=== PATIENT | female | born 1940 | race Caucasian/White ===

== ENCOUNTER → 2017-09-07 | Outpatient (REF) | payer MEDICARE ==
[~2017-09-07] MED LIST: CHOL200025 PO; RANI-324 PO; VALS1TAB63 PO; VALS320T12 PO
== END ==
LOC: ZZSTITCHES 09:51
PROVIDERS: ATTEND Physician Assistant
DX: N39.0 Urinary tract infection, site not specified (principal); B95.2 Enterococcus as the cause of diseases classified elsewhere
CPT/HCPCS: 87077; 87088; 87186

== ENCOUNTER 2018-05-15 19:51 | Emergency (ER) | payer MEDICARE, MEDICAID ==
[~2018-05-15 19:51] MED LIST changes: -LISI-353 PO
[2018-05-15] MEDS ORDERED: LISI-353 PO (20:10)
[2018-05-15] MEDS ORDERED: RANI-366 PO (20:10)
--- NOTE | 2018-05-15 20:10 | ER Report ---
History and Physical Time Seen By MD: 20:10 Hx. of Stated Complaint: blood pressure is hi with a headache HPI/ROS CHIEF COMPLAINT: elevated blood pressure HISTORY OF PRESENT ILLNESS: This is a 78 year old female. She has had some shortness of breath and dizziness today associated with elevated blood pressure. No chest pain. Says she has been off her blood pressure medicine for some time, but saw urgent care recently and they started her on Lisinopril/HCTZ 20/12.5. She took this medicine this morning. Because of not feeling well, she took her blood pressure tonight and it was very high. She said that the upper number was above 200 and the bottom number was about 90. She took a second dose of her Lisinopril/HCTZ. Has headache today as well. Dizziness and shortness of breath do seem to have been worse with change in posture and exertion. REVIEW OF SYSTEMS: Constitutional: No fever or chills. Eyes: No vision changes. ENT: No sore throat. No congestion. Cardiovascular: As above. Respiratory: No cough. No shortness of breath. Gastrointestinal: No abdominal pain. No nausea or vomiting. Has had some constipation the last few days. Genitourinary: No dysuria. Has had some frequency Musculoskeletal: No extremity or musculoskeletal pain. Skin: No rashes. No bruising. Neurological: No numbness. No weakness. Allergies: Coded Allergies: Sulfa (Sulfonamide Antibiotics) (Verified Allergy, Mild, UNKNOWN, 05/15/18) codeine (Unverified Allergy, Unknown, 05/15/18) losartan (Verified Allergy, Unknown, 05/15/18) sulfamethoxazole (Unverified Allergy, Unknown, 05/15/18) trimethoprim (Unverified Allergy, Unknown, 05/15/18) Home Meds Reported Medications Lisinopril/Hydrochlorothiazide (LISINOPRIL-HCTZ 20-12.5 MG TAB) 1 Each Tablet, 1 EACH PO DAILY 05/15/18 Ranitidine Hcl (ZANTAC) 150 Mg Tablet, 300 MG PO HS, TAB 05/15/18 Discontinued Reported Medications Ranitidine Hcl (ZANTAC) 150 Mg Tablet, 150 MG PO UNKNOWN FREQUENCY, TAB 07/09/17 Valsartan/Hydrochlorothiazide (DIOVAN HCT 80-12.5 MG TABLET) 1 Each Tablet, 1 EACH PO QDAY 07/09/17 Past Medical/Surgical History Hypertension, hiatal hernia and GERD, cholecystectomy Reviewed Nurses Notes: Yes Smoking Status: Never Smoker Hx Substance Use Disorder: No Constitutional Vital Sign - Last 24 Hours 05/15/18 05/15/18 05/15/18 05/15/18 19:51 19:57 20:00 20:00 Temp 98.0 Pulse 45 46 Resp 11 15 B/P (MAP) 199/84 (122) 199/81 190/77 (114) Pulse Ox 96 94 O2 Delivery Room Air Room Air 05/15/18 05/15/18 05/15/18 05/15/18 20:21 20:30 20:35 21:00 Pulse 44 43 Resp 12 15 B/P (MAP) 149/72 (97) 178/66 (103) Pulse Ox 95 93 O2 Delivery Room Air Room Air 05/15/18 05/15/18 05/15/18 05/15/18 21:05 21:30 21:40 21:45 Pulse 44 45 46 Resp 20 17 19 B/P (MAP) 206/85 (125) Pulse Ox 95 95 95 O2 Delivery Room Air Room Air 05/15/18 05/15/18 05/15/18 05/15/18 21:50 21:55 22:00 22:05 Pulse 45 45 46 44 Resp 10 18 14 15 B/P (MAP) 175/87 (116) Pulse Ox 95 95 95 95 05/15/18 05/15/18 05/15/18 05/15/18 22:10 22:15 22:20 22:25 Pulse 43 44 44 43 Resp 25 13 22 11 Pulse Ox 96 96 95 92 05/15/18 05/15/18 05/15/18 22:30 22:35 22:40 Pulse 44 45 ??? Resp 16 16 18 B/P (MAP) 181/80 (113) Pulse Ox 94 95 Physical Exam General Appearance: The patient is alert. No acute distress. Non-toxic in appearance. Eyes: Pupils are equal, round. Reactive to light. No pallor, injection or icterus. Extraocular movements are intact. ENT: Mucous membranes are moist. Normal oral mucosa. Posterior oropharynx is normal. Neck: Supple and non tender. No lymphadenopathy. Respiratory: Lungs are clear to auscultation. Cardiovascular: Bradycardia, regular. No murmurs, gallops or rubs. Normal capillary refill. No edema. Gastrointestinal: Abdomen is soft and non tender. Nondistended. Normal active bowel sounds. Neurological: Alert and oriented x3. No focal neurologic deficits Skin: Warm and dry. No rashes. Musculoskeletal: Extremities are nontender. No tenderness in palpation of the b ack/spine. DIFFERENTIAL DIAGNOSIS: After history and physical exam, differential diagnosis was considered for a patient with elevated blood pressure with history of hypertension but also with bradycardia and abnormal EKG. Question if this is second or third degree heart block, looks like a complete heart block at this time. [place] panel, blood count, troponin. Also get a urine test from her for h er question of urinary frequency all this may be due to the hydrochlorothiazide. No history of arrhythmias in the past. We'll watch the blood pressure and intervene as needed Medical Decision Making Data Points Result Diagram: 05/15/18200405/15/182004 Laboratory Hematology Test 05/15/18 20:05 05/15/18 21:25 Red Blood Count 5.20 M/uL (4.17-5.56) Mean Corpuscular Volume 87.9 fL (80.0-96.0) Mean Corpuscular Hemoglobin 30.6 pg (26.0-33.0) Mean Corpuscular Hemoglobin Concent 34.8 g/dL (32.0-36.0) Red Cell Distribution Width 13.5 % (11.5-14.5) Mean Platelet Volume 9.1 fL (7.2-11.1) Neutrophils (%) (Auto) 57.9 % (39.4-72.5) Lymphocytes (%) (Auto) 31.8 % (17.6-49.6) Monocytes (%) (Auto) 7.9 % (4.1-12.4) Eosinophils (%) (Auto) 1.7 % (0.4-6.7) Basophils (%) (Auto) 0.7 % (0.3-1.4) Nucleated RBC Relative Count (auto) 0.0 /100WBC Neutrophils # (Auto) 4.0 K/uL (2.0-7.4) Lymphocytes # (Auto) 2.2 K/uL (1.3-3.6) Monocytes # (Auto) 0.5 K/uL (0.3-1.0) Eosinophils # (Auto) 0.1 K/uL (0.0-0.5) Basophils # (Auto) 0.0 K/uL (0.0-0.1) Nucleated RBC Absolute Count (auto) 0.00 K/uL Prothrombin Time 12.6 seconds (12.0-14.4) Prothromb Time International Ratio 0.95 Activated Partial Thromboplast Time 28 seconds (23-35) Sodium Level 135 mmol/L (137-145) Potassium Level 3.6 mmol/L (3.5-5.0) Chloride Level 98 mmol/L (98-107) Carbon Dioxide Level 25 mmol/L (22-31) Blood Urea Nitrogen 22 mg/dl (7-18) Creatinine 0.90 mg/dl (0.52-1.04) Glomerular Filtration Rate Calc > 60.0 Random Glucose 133 mg/dl (75-110) Calcium Level 9.5 mg/dl (8.4-10.2) Magnesium Level 2.1 mg/dl (1.7-2.2) Total Bilirubin 0.5 mg/dl (0.2-1.3) Aspartate Amino Transf (AST/SGOT) 33 U/L (0-35) Alanine Aminotransferase (ALT/SGPT) 35 U/L (0-56) Alkaline Phosphatase 65 U/L (0-126) Troponin I < 0.012 ng/ml Total Protein 7.4 g/dl (6.3-8.2) Albumin 4.0 g/dl (3.5-5.0) Urine Color Yellow Urine Clarity Slightly-cloudy Urine pH 5.0 pH (4.8-9.5) Urine Specific [place] 1.012 Urine Protein Negative mg/dL (NEGATIVE) Urine Glucose (UA) Negative mg/dL (NEGATIVE) Urine Ketones Negative mg/dL (NEGATIVE) Urine Blood Negative (NEGATIVE) Urine Nitrite Negative (NEGATIVE) Urine Bilirubin Negative (NEGATIVE) Urine Urobilinogen Negative mg/dL (0.2-1.9) Urine Leukocyte Esterase Large (NEGATIVE) Urine RBC 3 /HPF (0-2/HPF) Urine WBC 66 /HPF (0-5/HPF) Urine Squamous Epithelial Cells Many /LPF (</=FEW) Urine Transitional Epithelial Cells Many /LPF (NONE-FEW) Urine Bacteria Negative /HPF (NONE-FEW) Urine Mucus None /HPF (NONE-FEW) Chemistry Test 05/15/18 20:05 05/15/18 21:25 White Blood Count 6.9 k/uL (4.5-11.0) Red Blood Count 5.20 M/uL (4.17-5.56) Hemoglobin 15.9 g/dL (12.0-16.0) Hematocrit 45.7 % (34.0-47.0) Mean Corpuscular Volume 87.9 fL (80.0-96.0) Mean Corpuscular Hemoglobin 30.6 pg (26.0-33.0) Mean Corpuscular Hemoglobin Concent 34.8 g/dL (32.0-36.0) Red Cell Distribution Width 13.5 % (11.5-14.5) Platelet Count 254 K/uL (150-450) Mean Platelet Volume 9.1 fL (7.2-11.1) Neutrophils (%) (Auto) 57.9 % (39.4-72.5) Lymphocytes (%) (Auto) 31.8 % (17.6-49.6) Monocytes (%) (Auto) 7.9 % (4.1-12.4) Eosinophils (%) (Auto) 1.7 % (0.4-6.7) Basophils (%) (Auto) 0.7 % (0.3-1.4) Nucleated RBC Relative Count (auto) 0.0 /100WBC Neutrophils # (Auto) 4.0 K/uL (2.0-7.4) Lymphocytes # (Auto) 2.2 K/uL (1.3-3.6) Monocytes # (Auto) 0.5 K/uL (0.3-1.0) Eosinophils # (Auto) 0.1 K/uL (0.0-0.5) Basophils # (Auto) 0.0 K/uL (0.0-0.1) Nucleated RBC Absolute Count (auto) 0.00 K/uL Prothrombin Time 12.6 seconds (12.0-14.4) Prothromb Time International Ratio 0.95 Activated Partial Thromboplast Time 28 seconds (23-35) Glomerular Filtration Rate Calc > 60.0 Calcium Level 9.5 mg/dl (8.4-10.2) Magnesium Level 2.1 mg/dl (1.7-2.2) Total Bilirubin 0.5 mg/dl (0.2-1.3) Aspartate Amino Transf (AST/SGOT) 33 U/L (0-35) Alanine Aminotransferase (ALT/SGPT) 35 U/L (0-56) Alkaline Phosphatase 65 U/L (0-126) Troponin I < 0.012 ng/ml Total Protein 7.4 g/dl (6.3-8.2) Albumin 4.0 g/dl (3.5-5.0) Urine Color Yellow Urine Clarity Slightly-cloudy Urine pH 5.0 pH (4.8-9.5) Urine Specific [place] 1.012 Urine Protein Negative mg/dL (NEGATIVE) Urine Glucose (UA) Negative mg/dL (NEGATIVE) Urine Ketones Negative mg/dL (NEGATIVE) Urine Blood Negative (NEGATIVE) Urine Nitrite Negative (NEGATIVE) Urine Bilirubin Negative (NEGATIVE) Urine Urobilinogen Negative mg/dL (0.2-1.9) Urine Leukocyte Esterase Large (NEGATIVE) Urine RBC 3 /HPF (0-2/HPF) Urine WBC 66 /HPF (0-5/HPF) Urine Squamous Epithelial Cells Many /LPF (</=FEW) Urine Transitional Epithelial Cells Many /LPF (NONE-FEW) Urine Bacteria Negative /HPF (NONE-FEW) Urine Mucus None /HPF (NONE-FEW) Coagulation Test 05/15/18 20:05 Prothrombin Time 12.6 seconds Prothromb Time International Ratio 0.95 Activated Partial Thromboplast Time 28 seconds Urinalysis Test 05/15/18 21:25 Urine Color Yellow Urine Clarity Slightly-cloudy Urine pH 5.0 pH (4.8-9.5) Urine Specific [place] 1.012 Urine Protein Negative mg/dL (NEGATIVE) Urine Glucose (UA) Negative mg/dL (NEGATIVE) Urine Ketones Negative mg/dL (NEGATIVE) Urine Blood Negative (NEGATIVE) Urine Nitrite Negative (NEGATIVE) Urine Bilirubin Negative (NEGATIVE) Urine Urobilinogen Negative mg/dL (0.2-1.9) Urine Leukocyte Esterase Large (NEGATIVE) Urine RBC 3 /HPF (0-2/HPF) Urine WBC 66 /HPF (0-5/HPF) Urine Squamous Epithelial Cells Many /LPF (</=FEW) Urine Transitional Epithelial Cells Many /LPF (NONE-FEW) Urine Bacteria Negative /HPF (NONE-FEW) Urine Mucus None /HPF (NONE-FEW) EKG/Imaging EKG Interpretation 12 lead EKG: Rhythm: Complete heart block with a widened QRS, rate 43 [place]: Left deviation QRS: Widened QRS, poor R-wave progression in the V leads ST segments: normal, no evidence of ST elevation or depression Imaging Examination: CHEST SINGLE AP Comparison: CT chest 07/31/2014 History: elevated blood pressure Findings: Cardiac and hilar contour size is within normal limits. No consolidation, nodule, or peribronchial inflammation. No pneumothorax, edema, or effusion. Subcarinal/posterior mediastinal mass effect; given differences in modality this is little changed since the CT and is related to the hiatal h ernia. Osseous structures are intact. IMPRESSION: 1. No findings of acute cardiopulmonary disease. 2. Hiatal hernia. Report Dictated By: Hi Pierson MD at 05/15/2018 9:37 PM EXAMINATION: CT HEAD WITHOUT CONTRAST COMPARISON: None available HISTORY: elevated blood pressure, headache PROCEDURE: Noncontrast CT from the vertex through the skull base. One of the following dose optimization techniques was utilized in the performance of this exam: Automated exposure control; adjustment of the mA and/or kV according to the patient's size; or use of an iterative reconstruction technique. Specific details can be referenced in the facility's radiology CT exam operational policy. FINDINGS: Brain volume: Age-appropriate. Hemorrhage/extra-axial fluid: None. Mass effect/midline shift/edema: None. Ischemia: Moderate chronic-appearing white matter change with no focal mcqueen- white differentiation loss. Ventricles and basal cisterns: Within normal limits. Posterior fossa: Negative. Vessels: Carotid atherosclerosis. Calvarium, skull base, and scalp: Negative. Visualized sinuses and orbits: Within normal limits. IMPRESSION: 1. No intracranial hemorrhage or mass effect. 2. Chronic appearing white matter change with no CT findings of acute ischemia. Report Dictated By: Hi Pierson MD at 05/15/2018 9:32 PM ED Course/Re-evaluation Clinical Indication for ER IV: IV Access ED Course After the initial evaluation, the blood pressures did start coming down. Headache is gone. Still mildly short of breath at times, but not really dizzy now. Heart rate remains bradycardia. Initially could've EKG was questionable for a second-degree heart block versus a complete heart block, on further evaluation, measuring out the P to P and QRS to QRS intervals, this appears consistent with complete heart block. Discussed this with the patient indicating the need to get her where she can be treated by cardiology and discussed the possible need for pacemaker. We also moved her to a different room and put pacer pads in place in case transcutaneous pacing would be needed. I called and spoke with cardiology, Dr. Herman. After my conversation with Dr. Herman, we are electing to fly the patient to [facility]. I talked to Dr. Phelan, the hospitalist and she is going to be accepting the patient for admission there in the ICU. I have given the patient 40 mEq of potassium chloride orally. Decision to Disposition Date: May 15, 2018 Decision to Disposition Time: 22:05 Transfer Facility Patient was transferred to [facility] via helicopter. The transfer was emergent, and was required because the capabilities of the receiving hospital. Consent for transfer was obtained from the patient. Air transport was chosen because of the need for possible IV drip medications and time sensitive nature of this patient's problem. See EMTALA for transfer orders. Depart Departure Latest Vital Signs Vital Signs Date Time Temp Pulse Resp B/P (MAP) Pulse Ox O2 Delivery O2 Flow Rate FiO2 05/15/18 22:40 ??? 18 05/15/18 22:35 95 05/15/18 22:30 181/80 (113) 05/15/18 21:40 Room Air 05/15/18 20:00 98.0 Impression: Primary Impression: Complete heart block Additional Impression: Severe hypertension Condition: Condition Unchanged Disposition: XFER TO ACUTE [facility]ARE [facility]OS[facility] Referrals: JEIMY AMN MD (PCP) Problem Qualifiers CARMELA URBINA MD May 15, 2018 20:10
--- NOTE | 2018-05-15 20:41 | EKG ---
FACILITY: [facility] [place] PATIENT NAME: FERN LAU : [id number] MR: [id number] V: [id number] EXAM DATE: ORDERING PHYSICIAN: CARMELA URBINA TECHNOLOGIST: ALEJANDRINA Crowell Reason : CARDIAC Blood Pressure : / mmHG Vent. Rate : 044 BPM Atrial Rate : 082 BPM P-R Int : 000 ms QRS Dur : 118 ms QT Int : 490 ms P-R-T Axes : 049 -31 095 degrees QTc Int : 418 ms Complete heart block with junctional escape rhythm Left axis deviation R wave progression consistent with an old ant/sep AL vs lead placement When compared with ECG of 31-JUL-2014 12:33, Now in complete heart block Confirmed by LENNY ALDRICH ([id number]) on 05/15/2018 9:05:16 PM Referred By: Confirmed By:LENNY ALDRICH
[2018-05-15 21:02] LABS: PLATELET COUNT, AUTOMATED 254 K/uL (150-450)
--- NOTE | 2018-05-15 21:41 | RADIOLOGY IMAGING REPORT ---
FACILITY: [facility] [place] PATIENT NAME: Fe Lorenzana : 1940 MR: [id number] V: [id number] EXAM DATE: ORDERING PHYSICIAN: CARMELA URBINA TECHNOLOGIST: Location: [facility] Patient: Fe Lorenzana : 1940 Visit/Account:[id number] Date of Sevice: 05/15/2018 EXAMINATION: CT HEAD WITHOUT CONTRAST COMPARISON: None available HISTORY: elevated blood pressure, headache PROCEDURE: Noncontrast CT from the vertex through the skull base. One of the following dose optimizat ion techniques was utilized in the performance of this exam: Automated exposure control; adjustment o f the mA and/or kV according to the patient's size; or use of an iterative reconstruction technique. Specific details can be referenced in the facility's radiology CT exam operational policy. FINDINGS: Brain volume: Age-appropriate. Hemorrhage/extra-axial fluid: None. Mass effect/midline shift/edema: None. Ischemia: Moderate chronic-appearing white matter change with no focal mcqueen-white differentiation los s. Ventricles and basal cisterns: Within normal limits. Posterior fossa: Negative. Vessels: Carotid atherosclerosis. Calvarium, skull base, and scalp: Negative. Visualized sinuses and orbits: Within normal limits. IMPRESSION: 1. No intracranial hemorrhage or mass effect. 2. Chronic appearing white matter change with no CT findings of acute ischemia. Report Dictated By: Hi Pierson MD at 05/15/2018 9:32 PM Report E-Signed By: Hi Pierson MD at 05/15/2018 9:37 PM WSN:[email or web address]
--- NOTE | 2018-05-15 21:47 | RADIOLOGY IMAGING REPORT ---
FACILITY: [facility] [place] PATIENT NAME: Fe Lorenzana : 1940 MR: [id number] V: [id number] EXAM DATE: ORDERING PHYSICIAN: CARMELA URBINA TECHNOLOGIST: Location: [facility] [place] Patient: Fe Lorenzana : 1940 Visit/Account:[id number] Date of Sevice: 05/15/2018 Examination: CHEST SINGLE AP Comparison: CT chest 07/31/2014 History: elevated blood pressure Findings: Cardiac and hilar contour size is within normal limits. No consolidation, nodule, or perib ronchial inflammation. No pneumothorax, edema, or effusion. Subcarinal/posterior mediastinal mass effect; given differences in modality this is little changed since the CT and is related to the hiat al hernia. Osseous structures are intact. IMPRESSION: 1. No findings of acute cardiopulmonary disease. 2. Hiatal hernia. Report Dictated By: Hi Pierson MD at 05/15/2018 9:37 PM Report E-Signed By: Hi Pierson MD at 05/15/2018 9:43 PM WSN:[email or web address]
[2018-05-15] MEDS ORDERED: POTASSIUM CHL 20 MEQ TABCR PO SCH (21:50)
[2018-05-15] MEDS ORDERED: DOPamine/DEXTRO(*) 1600 MCG/ML 250 ML ONE (21:54)
[2018-05-15 22:30] VITALS: BP 181/80
[2018-05-15 23:23] LABS: INR 0.95
== END 2018-05-15 22:58 | disposition short-term general hospital (02) ==
LOC: ER 20:24
DX: I44.2 Atrioventricular block, complete (principal); I10 Essential (primary) hypertension
CPT/HCPCS: 81001; 83735; 84484; 85025; 85610; 85730; 87088; 93005; 99285; A9270; J1265; 70450; 71045; 82040; 82247; 82310; 82374; 82435; 82565; 82947; 84075; 84132; 84155; 84295; 84450; 84460; 84520

== ENCOUNTER → 2018-05-15 | Outpatient (REF) ==
[~2018-05-15] MED LIST changes: +LISI-353 PO; -RANI-324 PO; +RANI-366 PO
== END ==
LOC: AMB 22:22
PROVIDERS: ATTEND Nurse Practitioner
DX: Z76.89 Persons encountering health services in other specified circumstances (principal)

== ENCOUNTER → 2018-10-01 | Outpatient (CLI) | payer MEDICARE, MEDICAID ==
[~2018-10-01] MED LIST changes: +CIPR-345 PO; +LISI-353 PO; +PANT40TA65 PO
[2018-10-01 15:20] LABS: LDL CHOLESTEROL 94 mg/dl
[2018-10-01 15:23] LABS: PLATELET COUNT, AUTOMATED 316 K/uL (150-450)
== END ==
LOC: LAB 14:52
PROVIDERS: ATTEND Internal Medicine
DX: I44.2 Atrioventricular block, complete (principal); I10 Essential (primary) hypertension
CPT/HCPCS: 36415; 81001; 82040; 82247; 82310; 82374; 82435; 82465; 82565; 82947; 83718; 84075; 84132; 84155; 84295; 84443; 84450; 84460; 84478; 84520; 85025; 87077; 87088; 87186

== ENCOUNTER 2018-10-07 19:42 | Emergency (ER) | payer MEDICARE, MEDICAID ==
--- NOTE | 2018-10-07 20:57 | ER Report ---
History and Physical Time Seen By MD: 20:57 HPI/ROS CHIEF COMPLAINT: Elevated blood pressure and a headache HISTORY OF PRESENT ILLNESS: This is a 70-year-old female. She came to [facility] because her blood pressure is elevated and she has a mild headache. Denies any other symptoms. She denies any chest pain, shortness of breath, dizziness, v ision changes or other problems. She has been on some blood pressure medicine in the past but was taken off because of problems with this and blood pressure being too low. Her primary care provider is currently monitoring her blood pressure. No trouble with bowel or bladder function. She is eating and drinking normally. No recent illnesses and no [id number] medications. She does have a history of complete heart block during her last hospitalization in which I took care of her, and [place] [facility] [place]. Allergies: Coded Allergies: Sulfa (Sulfonamide Antibiotics) (Verified Allergy, Mild, UNKNOWN, 05/15/18) codeine (Unverified Allergy, Unknown, 05/15/18) losartan (Verified Allergy, Unknown, 05/15/18) sulfamethoxazole (Unverified Allergy, Unknown, 05/15/18) trimethoprim (Unverified Allergy, Unknown, 05/15/18) Home Meds Active Scripts Ciprofloxacin 250 Mg (CIPROFLOXACIN 250 MG) 250 Mg Tablet, 250 MG PO BID, #10 TAB Prov:MARTIN DUNN MD 10/03/18 Pantoprazole Sodium (PANTOPRAZOLE SODIUM) 40 Mg Tablet.dr, 40 MG PO QDAY, #30 TAB.SR 6 Refills Prov:MARTIN DUNN MD 10/01/18 Discontinued Reported Medications Lisinopril/Hydrochlorothiazide (LISINOPRIL-HCTZ 20-12.5 MG TAB) 1 Each Tablet, 1 EACH PO DAILY 05/15/18 Ranitidine Hcl (ZANTAC) 150 Mg Tablet, 300 MG PO HS, TAB 05/15/18 Reviewed Nurses Notes: Yes Smoking Status: Never Smoker Hx Substance Use Disorder: No Constitutional Vital Sign - Last 24 Hours 10/07/18 10/07/18 10/07/18 10/07/18 20:57 21:00 21:00 21:15 Pulse 90 90 96 Resp 27 22 14 B/P (MAP) 181/98 (125) 156/106 (123) 156/106 Pulse Ox 93 93 92 O2 Delivery Room Air 10/07/18 10/07/18 10/07/18 10/07/18 21:30 21:45 22:00 22:15 Pulse 89 92 90 Resp 17 23 27 19 B/P (MAP) 145/96 (112) 167/103 (124) Pulse Ox 93 92 92 93 10/07/18 10/07/18 10/07/18 10/07/18 22:30 22:45 23:00 23:32 Pulse 89 89 91 Resp 14 31 28 B/P (MAP) 145/92 (109) 165/100 (121) 166/101 (122) Pulse Ox 90 91 90 10/07/18 10/08/18 10/08/18 10/08/18 23:45 00:00 00:15 00:30 Pulse 94 87 87 Resp 11 14 14 22 B/P (MAP) 149/94 (112) 143/100 (114) Pulse Ox 92 91 91 91 10/08/18 00:45 Pulse 89 Resp 14 Pulse Ox 92 Physical Exam General Appearance: The patient is alert. No acute distress. Non-toxic in appearance. Eyes: Pupils are equal, round. Reactive to light. No pallor, injection or icterus. Extraocular movements are intact. ENT: Mucous membranes are moist. Normal oral mucosa. Posterior oropharynx is normal. Normal tympanic membranes and canals. Neck: Supple and non tender. Respiratory: Lungs are clear to auscultation. There are no retractions or accessory muscle use. Cardiovascular: Regular rate and rhythm. No murmurs, gallops or rubs. Normal capillary refill. No edema. No carotid bruits. Gastrointestinal: Abdomen is soft and non tender. Nondistended. Normal active bowel sounds. No costovertebral angle tenderness with percussion. Neurological: Alert and oriented x3. Cranial nerves II through XII show no acute deficits on my exam. No focal neurologic deficits in the extremities. Skin: Warm and dry. No rashes. Musculoskeletal: Extremities are nontender. No tenderness in palpation of the cervical, thoracic and lumbar spine. DIFFERENTIAL DIAGNOSIS: After history and physical exam, differential diagnosis was considered for patient with elevated blood pressure and has a headache, no other symptoms at this time. We'll need to look for end organ perfusion problems associated with elevated blood pressure but does not appear to be the case now. And then we'll need to address whether she needs to be on a blood pressure medicine at this time. Medical Decision Making Data Points Result Diagram: 10/07/18220110/07/182201 Laboratory Hematology Test 10/07/18 21:55 10/07/18 22:02 Urine Color Straw Urine Clarity Clear Urine pH 7.0 pH (4.8-9.5) Urine Specific [place] 1.008 Urine Protein Negative mg/dL (NEGATIVE) Urine Glucose (UA) Negative mg/dL (NEGATIVE) Urine Ketones Negative mg/dL (NEGATIVE) Urine Blood Negative (NEGATIVE) Urine Nitrite Negative (NEGATIVE) Urine Bilirubin Negative (NEGATIVE) Urine Urobilinogen Negative mg/dL (0.2-1.9) Urine Leukocyte Esterase Negative (NEGATIVE) Urine RBC 1 /HPF (0-2/HPF) Urine WBC 6 /HPF (0-5/HPF) Urine Squamous Epithelial Cells Many /LPF (</=FEW) Urine Transitional Epithelial Cells Moderate /LPF (NONE-FEW) Urine Bacteria Negative /HPF (NONE-FEW) Urine Mucus None /HPF (NONE-FEW) Red Blood Count 4.96 M/uL (4.17-5.56) Mean Corpuscular Volume 88.6 fL (80.0-96.0) Mean Corpuscular Hemoglobin 30.7 pg (26.0-33.0) Mean Corpuscular Hemoglobin Concent 34.6 g/dL (32.0-36.0) Red Cell Distribution Width 14.4 % (11.5-14.5) Mean Platelet Volume 7.7 fL (7.2-11.1) Neutrophils (%) (Auto) 47.4 % (39.4-72.5) Lymphocytes (%) (Auto) 38.8 % (17.6-49.6) Monocytes (%) (Auto) 8.6 % (4.1-12.4) Eosinophils (%) (Auto) 4.2 % (0.4-6.7) Basophils (%) (Auto) 1.0 % (0.3-1.4) Nucleated RBC Relative Count (auto) 0.1 /100WBC Neutrophils # (Auto) 3.1 K/uL (2.0-7.4) Lymphocytes # (Auto) 2.5 K/uL (1.3-3.6) Monocytes # (Auto) 0.6 K/uL (0.3-1.0) Eosinophils # (Auto) 0.3 K/uL (0.0-0.5) Basophils # (Auto) 0.1 K/uL (0.0-0.1) Nucleated RBC Absolute Count (auto) 0.01 K/uL Sodium Level 139 mmol/L (137-145) Potassium Level 3.4 mmol/L (3.5-5.0) Chloride Level 102 mmol/L (98-107) Carbon Dioxide Level 26 mmol/L (22-31) Blood Urea Nitrogen 15 mg/dl (7-18) Creatinine 0.80 mg/dl (0.52-1.04) Glomerular Filtration Rate Calc > 60.0 Random Glucose 109 mg/dl (75-110) Calcium Level 9.8 mg/dl (8.4-10.2) Total Bilirubin 0.9 mg/dl (0.2-1.3) Aspartate Amino Transf (AST/SGOT) 34 U/L (0-35) Alanine Aminotransferase (ALT/SGPT) 38 U/L (0-56) Alkaline Phosphatase 85 U/L (0-126) Troponin I < 0.012 ng/ml Total Protein 8.2 g/dl (6.3-8.2) Albumin 4.6 g/dl (3.5-5.0) Chemistry Test 10/07/18 21:55 10/07/18 22:02 Urine Color Straw Urine Clarity Clear Urine pH 7.0 pH (4.8-9.5) Urine Specific [place] 1.008 Urine Protein Negative mg/dL (NEGATIVE) Urine Glucose (UA) Negative mg/dL (NEGATIVE) Urine Ketones Negative mg/dL (NEGATIVE) Urine Blood Negative (NEGATIVE) Urine Nitrite Negative (NEGATIVE) Urine Bilirubin Negative (NEGATIVE) Urine Urobilinogen Negative mg/dL (0.2-1.9) Urine Leukocyte Esterase Negative (NEGATIVE) Urine RBC 1 /HPF (0-2/HPF) Urine WBC 6 /HPF (0-5/HPF) Urine Squamous Epithelial Cells Many /LPF (</=FEW) Urine Transitional Epithelial Cells Moderate /LPF (NONE-FEW) Urine Bacteria Negative /HPF (NONE-FEW) Urine Mucus None /HPF (NONE-FEW) White Blood Count 6.5 k/uL (4.5-11.0) Red Blood Count 4.96 M/uL (4.17-5.56) Hemoglobin 15.2 g/dL (12.0-16.0) Hematocrit 43.9 % (34.0-47.0) Mean Corpuscular Volume 88.6 fL (80.0-96.0) Mean Corpuscular Hemoglobin 30.7 pg (26.0-33.0) Mean Corpuscular Hemoglobin Concent 34.6 g/dL (32.0-36.0) Red Cell Distribution Width 14.4 % (11.5-14.5) Platelet Count 324 K/uL (150-450) Mean Platelet Volume 7.7 fL (7.2-11.1) Neutrophils (%) (Auto) 47.4 % (39.4-72.5) Lymphocytes (%) (Auto) 38.8 % (17.6-49.6) Monocytes (%) (Auto) 8.6 % (4.1-12.4) Eosinophils (%) (Auto) 4.2 % (0.4-6.7) Basophils (%) (Auto) 1.0 % (0.3-1.4) Nucleated RBC Relative Count (auto) 0.1 /100WBC Neutrophils # (Auto) 3.1 K/uL (2.0-7.4) Lymphocytes # (Auto) 2.5 K/uL (1.3-3.6) Monocytes # (Auto) 0.6 K/uL (0.3-1.0) Eosinophils # (Auto) 0.3 K/uL (0.0-0.5) Basophils # (Auto) 0.1 K/uL (0.0-0.1) Nucleated RBC Absolute Count (auto) 0.01 K/uL Glomerular Filtration Rate Calc > 60.0 Calcium Level 9.8 mg/dl (8.4-10.2) Total Bilirubin 0.9 mg/dl (0.2-1.3) Aspartate Amino Transf (AST/SGOT) 34 U/L (0-35) Alanine Aminotransferase (ALT/SGPT) 38 U/L (0-56) Alkaline Phosphatase 85 U/L (0-126) Troponin I < 0.012 ng/ml Total Protein 8.2 g/dl (6.3-8.2) Albumin 4.6 g/dl (3.5-5.0) Urinalysis Test 10/07/18 21:55 Urine Color Straw Urine Clarity Clear Urine pH 7.0 pH (4.8-9.5) Urine Specific [place] 1.008 Urine Protein Negative mg/dL (NEGATIVE) Urine Glucose (UA) Negative mg/dL (NEGATIVE) Urine Ketones Negative mg/dL (NEGATIVE) Urine Blood Negative (NEGATIVE) Urine Nitrite Negative (NEGATIVE) Urine Bilirubin Negative (NEGATIVE) Urine Urobilinogen Negative mg/dL (0.2-1.9) Urine Leukocyte Esterase Negative (NEGATIVE) Urine RBC 1 /HPF (0-2/HPF) Urine WBC 6 /HPF (0-5/HPF) Urine Squamous Epithelial Cells Many /LPF (</=FEW) Urine Transitional Epithelial Cells Moderate /LPF (NONE-FEW) Urine Bacteria Negative /HPF (NONE-FEW) Urine Mucus None /HPF (NONE-FEW) EKG/Imaging EKG Interpretation 12 lead EKG: Rhythm: Wide complex rhythm, appears to be a few leads show possible pacer spikes in the lead 2 and V2, but not clearly a paced rhythm. Rate is 89. [place]: Left axis QRS: Left bundle ST segments: Otherwise negative Imaging Head CT scan without contrast HISTORY: Headache COMPARISONS: May 15, 2018 TECHNIQUE: Non-contrast head CT was performed with sagittal and coronal reformations. One of the following dose optimization techniques was utilized in the performance of this exam: automated exposure control; adjustment of the mA and/or kV according to patient size; or use of iterative reconstruction technique. Specific details can be referenced in the facility's radiology CT exam operational policy. FINDINGS: There is no intracranial hemorrhage, hydrocephalus or midline shift. The basal cisterns, mcqueen-white differentiation, and convexity sulci are maintained. Normal orbital soft tissues. Unchanged patchy white matter hypoattenuation. Clear mastoid air cells, small left maxillary sinus mucous retention cysts and normal osseous structures. IMPRESSION: No acute intracranial abnormality. Moderate to severe unchanged chronic small vessel ischemic change. Report Dictated By: Juan Vaz MD at 10/07/2018 11:35 PM TWO VIEW CHEST 10/07/2018 11:18 PM. INDICATION: Elevated blood pressure, headache. COMPARISON: 05/15/2018. FINDINGS: Lungs are well-expanded. The lungs are clear. No pneumothorax or pleural effusion. Heart size is normal. Moderate size hiatal hernia as previously seen. Dual-chamber pacemaker in place. Cholecystectomy clips. IMPRESSION: No acute abnormality or significant change. Report Dictated By: Koko Nguyen MD at 10/07/2018 11:32 PM ED Course/Re-evaluation Clinical Indication for ER IV: IV Access ED Course After my initial evaluation the only symptom she is having is the headache. CT scan of her head was negative, chest x-ray was negative. Labs unremarkable. Blood pressure remained elevated so treated was 0.1 mg of clonidine and referred her back to her primary care doctor for reevaluation and decisions on blood pressure. Other than the EKG showing either a pacer versus left bundle, asymptomatic and troponin negative. Cautioned her to watch for any signs of difficulty breathing or chest pain and to return if she has any problems with this, otherwise follow-up with primary care. Decision to Disposition Date: Oct 08, 2018 Decision to Disposition Time: 00:35 Depart Departure Latest Vital Signs Vital Signs Date Time Temp Pulse Resp B/P (MAP) Pulse Ox O2 Delivery O2 Flow Rate FiO2 10/08/18 00:45 89 14 92 10/08/18 00:30 143/100 (114) 10/07/18 21:00 Room Air Impression: Primary Impression: Hypertensive urgency Additional Impression: Headache Condition: Improved Disposition: HOME OR SELF-CARE Referrals: MARTIN DUNN MD (PCP) Patient Instructions: Hypertension (ED) Additional Instructions: Labs and imaging negative tonight. No further symptoms. Blood pressure came down a little tonight, but still a little elevated. Recommend talking to Dr. Dunn's office tomorrow about need for anti- hypertensive medications. Problem Qualifiers Additional Impression: Headache Headache type: unspecified Headache chronicity pattern: acute headache Intractability: not intractable Qualified Codes: R51 - Headache CARMELA URBINA MD Oct 07, 2018 20:57
--- NOTE | 2018-10-07 21:51 | EKG ---
FACILITY: [facility] PATIENT NAME: FERN LAU : [id number] MR: [id number] V: [id number] EXAM DATE: ORDERING PHYSICIAN: CARMELA URBINA TECHNOLOGIST: SANJEEV Crowell Reason : Blood Pressure : / mmHG Vent. Rate : 089 BPM Atrial Rate : 089 BPM P-R Int : 206 ms QRS Dur : 150 ms QT Int : 416 ms P-R-T Axes : 049 070 003 degrees QTc Int : 506 ms Appears to be electronic ventricular pacemaker Abnormal ECG Confirmed by ELIA VENEGAS ([id number]) on 10/08/2018 6:06:21 AM Referred By: Confirmed By:ELIA VENEGAS
[2018-10-07 22:13] LABS: PLATELET COUNT, AUTOMATED 324 K/uL (150-450)
--- NOTE | 2018-10-07 23:38 | RADIOLOGY IMAGING REPORT ---
FACILITY: [facility] [place] PATIENT NAME: Fe Lorenzana : 1940 MR: [id number] V: [id number] EXAM DATE: ORDERING PHYSICIAN: CARMELA URBINA TECHNOLOGIST: Location: [facility] Patient: Fe Lorenzana : 1940 Visit/Account:[id number] Date of Sevice: 10/07/2018 TWO VIEW CHEST 10/07/2018 11:18 PM. INDICATION: Elevated blood pressure, headache. COMPARISON: 05/15/2018. FINDINGS: Lungs are well-expanded. The lungs are clear. No pneumothorax or pleural effusion. Heart size is normal. Moderate size hiatal hernia as previously seen. Dual-chamber pacemaker in place. Cholecystectomy clips. IMPRESSION: No acute abnormality or significant change. Report Dictated By: Koko Nguyen MD at 10/07/2018 11:32 PM Report E-Signed By: Koko Nguyen MD at 10/07/2018 11:33 PM WSN:[id number]
--- NOTE | 2018-10-07 23:42 | RADIOLOGY IMAGING REPORT ---
[facility] PATIENT NAME: Fe Lorenzana : 1940 MR: [id number] V: [id number] EXAM DATE: ORDERING PHYSICIAN: CARMELA URBINA TECHNOLOGIST: Location: [facility] Patient: Fe Lorenzana : 1940 Visit/Account:[id number] Date of Sevice: 10/07/[address] scan without contrast HISTORY: Headache COMPARISONS: May 15, 2018 TECHNIQUE: Non-contrast head CT was performed with sagittal and coronal reformations. One of the following dose optimization techniques was utilized in the performance of this exam: autom ated exposure control; adjustment of the mA and/or kV according to patient size; or use of iterative reconstruction technique. Specific details can be referenced in the facility's radiology CT exam ope rational policy. FINDINGS: There is no intracranial hemorrhage, hydrocephalus or midline shift. The basal cisterns, mcqueen-white differentiation, and convexity sulci are maintained. Normal orbital soft tissues. Unchanged patchy wh ite matter hypoattenuation. Clear mastoid air cells, small left maxillary sinus mucous retention cysts and normal osseous structu res. IMPRESSION: No acute intracranial abnormality. Moderate to severe unchanged chronic small vessel ischemic change. Report Dictated By: Juan Vaz MD at 10/07/2018 11:35 PM Report E-Signed By: Juan Vaz MD at 10/07/2018 11:38 PM WSN:[id number]
[2018-10-08 00:30] VITALS: BP 143/100
[2018-10-08] MEDS ORDERED: cloNIDine HCL 0.1 MG TAB PO ONE (00:35)
== END 2018-10-08 00:59 | disposition home or self-care (01) ==
LOC: ER 21:07
DX: I16.0 Hypertensive urgency (principal); R51 Headache
CPT/HCPCS: 70450; 71046; 81001; 84484; 85025; 93005; 99284; A9270; 82040; 82247; 82310; 82374; 82435; 82565; 82947; 84075; 84132; 84155; 84295; 84450; 84460; 84520

== ENCOUNTER → 2018-11-01 | Outpatient (CLI) | payer MEDICARE, MEDICAID ==
[~2018-11-01] MED LIST changes: +AMLO-127; +LISI20TA29 PO
== END ==
LOC: LAB 09:23
PROVIDERS: ATTEND Internal Medicine Cardiovascular Disease
DX: I10 Essential (primary) hypertension (principal)
CPT/HCPCS: 36415; 82465; 83718; 84478

== ENCOUNTER 2019-02-03 18:38 | Emergency (ER) | payer MEDICARE, MEDICAID ==
[~2019-02-03 18:38] MED LIST changes: +DICL100G39 TD; -RANI-366 PO; +RANI-54 PO
[2019-02-03] MEDS ORDERED: ASPIRIN 81 MG CHEW ONE (18:48)
--- NOTE | 2019-02-03 18:51 | ER Report ---
History and Physical Time Seen By MD: 18:42 Hx. of Stated Complaint: CHEST PAIN FOR AN HOUR HPI/ROS CHIEF COMPLAINT: Chest pain HISTORY OF PRESENT ILLNESS: 78-year-old female with a history of hypertension, GERD, complete heart block, status post pacemaker, 04/[address] Herman cardiology in [place]. She denies head sudden onset of substernal chest pressure 8/10 with tingling in her bilateral arms with shortness of breath but no diaphoresis or nausea. Patient does have a history of GERD and difficulty swallowing. She eats very slowly. This came on after eating a stew. Patient notes no leg swelling. REVIEW OF SYSTEMS: Respiratory: As above Cardiovascular: As above Gastrointestinal: No vomiting, no abdominal pain. Musculoskeletal: No back pain. Allergies: Coded Allergies: Sulfa (Sulfonamide Antibiotics) (Verified Allergy, Mild, UNKNOWN, 02/03/19) codeine (Unverified Allergy, Unknown, 02/03/19) losartan (Verified Allergy, Unknown, 02/03/19) sulfamethoxazole (Unverified Allergy, Unknown, 02/03/19) trimethoprim (Unverified Allergy, Unknown, 02/03/19) Home Meds Active Scripts Diclofenac Sodium 1% Gel (VOLTAREN 1% GEL) 100 Gm Gel..gram., 0 TD BID PRN for pain, #100 GM 3 Refills Prov:MARTIN KELLER MD 01/14/19 Lisinopril (LISINOPRIL) 20 Mg Tablet, 20 MG PO BID, #180 TAB 3 Refills Prov:MARTIN KELLER MD 01/14/19 Pantoprazole Sodium (PANTOPRAZOLE SODIUM) 40 Mg Tablet.dr, 40 MG PO QDAY, #30 TAB.SR 6 Refills Prov:MARTIN KELLER MD 10/01/18 Reviewed Nurses Notes: Yes Old Medical Records Reviewed: Yes Smoking Status: Never Smoker Hx Substance Use Disorder: No Constitutional Vital Sign - Last 24 Hours 02/03/19 02/03/19 02/03/19 02/03/19 18:38 18:41 18:44 18:53 Temp 97.9 Pulse ??? 98 87 Resp 16 20 B/P (MAP) 197/97 (130) 197/97 Pulse Ox 90 93 O2 Delivery Room Air 02/03/19 02/03/19 02/03/1919 18:57 19:00 19:08 19:19 Pulse 84 Resp 20 B/P (MAP) 155/86 (109) 165/98 (120) Pulse Ox 86 O2 Flow Rate 2.0 02/03/19 02/03/19 02/03/19 02/03/19 19:23 19:30 19:38 19:53 Pulse 75 70 ??? Resp 16 19 B/P (MAP) 169/96 (120) Pulse Ox 91 96 02/03/19 02/03/19 02/03/19 02/03/19 19:57 20:00 20:08 20:15 Pulse 70 Resp 19 B/P (MAP) 175/99 (124) 170/93 (118) 167/96 (119) Pulse Ox 96 02/03/19 02/03/19 02/03/19 02/03/19 20:23 20:28 20:30 20:43 Pulse 80 78 83 Resp 14 25 39 B/P (MAP) 168/97 (120) Pulse Ox 96 96 95 02/03/19 02/03/19 02/03/19 02/03/19 20:45 20:58 21:03 21:15 Pulse 72 73 Resp 8 20 B/P (MAP) 169/87 (114) 124/76 (92) Pulse Ox 95 94 02/03/19 02/03/19 02/03/19 02/03/19 21:18 21:30 21:33 21:45 Pulse 71 73 Resp 19 22 B/P (MAP) 133/75 (94) 122/60 (80) Pulse Ox 94 94 02/03/19 02/03/19 02/03/19 02/03/19 21:48 22:03 22:17 22:18 Pulse 70 72 72 Resp 27 24 17 B/P (MAP) 140/88 (105) Pulse Ox 95 94 95 02/03/19 02/03/19 02/03/19 02/03/19 22:23 22:30 22:38 22:45 Pulse 69 76 Resp 18 15 B/P (MAP) 124/73 (90) 136/76 (96) Pulse Ox 97 95 02/03/19 02/03/19 02/03/19 02/03/19 22:53 23:00 23:08 23:13 Pulse 72 ? Resp 15 20 B/P (MAP) 139/83 (101) Pulse Ox 96 96 02/03/19 02/03/19 02/03/19 02/03/19 23:15 23:28 23:30 23:43 Pulse 70 69 Resp 28 16 B/P (MAP) 159/90 (113) 141/82 (101) Pulse Ox 95 95 02/03/19 23:45 B/P (MAP) 135/83 (100) Intake and Output 02/03/19 02/03/19 02/04/19 15:02 23:02 07:02 Intake Total 7 ml Balance 7 ml Physical Exam Vital signs stable, blood pressure elevated, pulse ox normal, afebrile General Appearance: The patient is alert, has no immediate need for airway protection and no current signs of toxicity. Slightly pale appearing, skin warm and dry, moderate distress HEENT: Pupils equal and round no injection. Oropharynx without redness or exudate Respiratory: Chest is non tender, lungs are clear to auscultation. No chest wall tenderness Cardiac: regular rate and rhythm, no murmur Gastrointestinal: Abdomen is soft and non tender, no masses, bowel sounds normal. Musculoskeletal: Neck: Neck is supple and non tender. Extremities have full range of motion and are non tender. Skin: No rashes or lesions. DIFFERENTIAL DIAGNOSIS: After history and physical exam differential diagnosis was considered for chest pain including but not limited to myocardial ischemia, pericarditis pulmonary embolus, chest wall pain, pleural inflammation and pulmonary infectious causes. Medical Decision Making Data Points Result Diagram: 02/03/19 1843 02/03/19 1843 Laboratory Hematology Test 02/03/19 18:43 02/03/19 21:50 Red Blood Count 4.75 M/uL (4.17-5.56) Mean Corpuscular Volume 86.9 fL (80.0-96.0) Mean Corpuscular Hemoglobin 30.4 pg (26.0-33.0) Mean Corpuscular Hemoglobin Concent 35.0 g/dL (32.0-36.0) Red Cell Distribution Width 14.1 % (11.5-14.5) Mean Platelet Volume 8.2 fL (7.2-11.1) Neutrophils (%) (Auto) 46.0 % (39.4-72.5) Lymphocytes (%) (Auto) 42.6 % (17.6-49.6) Monocytes (%) (Auto) 8.0 % (4.1-12.4) Eosinophils (%) (Auto) 2.4 % (0.4-6.7) Basophils (%) (Auto) 1.0 % (0.3-1.4) Nucleated RBC Relative Count (auto) 0.0 /100WBC Neutrophils # (Auto) 3.2 K/uL (2.0-7.4) Lymphocytes # (Auto) 2.9 K/uL (1.3-3.6) Monocytes # (Auto) 0.5 K/uL (0.3-1.0) Eosinophils # (Auto) 0.2 K/uL (0.0-0.5) Basophils # (Auto) 0.1 K/uL (0.0-0.1) Nucleated RBC Absolute Count (auto) 0.00 K/uL D-Dimer Quantitative (PE/DVT) 1.72 ug/ml (0-0.50) Sodium Level 138 mmol/L (137-145) Potassium Level 4.3 mmol/L (3.5-5.0) Chloride Level 104 mmol/L (98-107) Carbon Dioxide Level 23 mmol/L (22-31) Blood Urea Nitrogen 19 mg/dl (7-18) Creatinine 1.00 mg/dl (0.52-1.04) Glomerular Filtration Rate Calc 53.6 Random Glucose 100 mg/dl (75-110) Calcium Level 9.6 mg/dl (8.4-10.2) Total Bilirubin 0.6 mg/dl (0.2-1.3) Aspartate Amino Transf (AST/SGOT) 31 U/L (0-35) Alanine Aminotransferase (ALT/SGPT) 35 U/L (0-56) Alkaline Phosphatase 85 U/L (0-126) B-Type Natriuretic Peptide 231 pg/ml (0-100) Total Protein 7.6 g/dl (6.3-8.2) Albumin 4.2 g/dl (3.5-5.0) Troponin I 0.493 ng/ml Chemistry Test 02/03/19 18:43 02/03/19 21:50 White Blood Count 6.9 k/uL (4.5-11.0) Red Blood Count 4.75 M/uL (4.17-5.56) Hemoglobin 14.4 g/dL (12.0-16.0) Hematocrit 41.2 % (34.0-47.0) Mean Corpuscular Volume 86.9 fL (80.0-96.0) Mean Corpuscular Hemoglobin 30.4 pg (26.0-33.0) Mean Corpuscular Hemoglobin Concent 35.0 g/dL (32.0-36.0) Red Cell Distribution Width 14.1 % (11.5-14.5) Platelet Count 313 K/uL (150-450) Mean Platelet Volume 8.2 fL (7.2-11.1) Neutrophils (%) (Auto) 46.0 % (39.4-72.5) Lymphocytes (%) (Auto) 42.6 % (17.6-49.6) Monocytes (%) (Auto) 8.0 % (4.1-12.4) Eosinophils (%) (Auto) 2.4 % (0.4-6.7) Basophils (%) (Auto) 1.0 % (0.3-1.4) Nucleated RBC Relative Count (auto) 0.0 /100WBC Neutrophils # (Auto) 3.2 K/uL (2.0-7.4) Lymphocytes # (Auto) 2.9 K/uL (1.3-3.6) Monocytes # (Auto) 0.5 K/uL (0.3-1.0) Eosinophils # (Auto) 0.2 K/uL (0.0-0.5) Basophils # (Auto) 0.1 K/uL (0.0-0.1) Nucleated RBC Absolute Count (auto) 0.00 K/uL D-Dimer Quantitative (PE/DVT) 1.72 ug/ml (0-0.50) Glomerular Filtration Rate Calc 53.6 Calcium Level 9.6 mg/dl (8.4-10.2) Total Bilirubin 0.6 mg/dl (0.2-1.3) Aspartate Amino Transf (AST/SGOT) 31 U/L (0-35) Alanine Aminotransferase (ALT/SGPT) 35 U/L (0-56) Alkaline Phosphatase 85 U/L (0-126) B-Type Natriuretic Peptide 231 pg/ml (0-100) Total Protein 7.6 g/dl (6.3-8.2) Albumin 4.2 g/dl (3.5-5.0) Troponin I 0.493 ng/ml Coagulation Test 02/03/19 18:43 D-Dimer Quantitative (PE/DVT) 1.72 ug/ml EKG/Imaging EKG Interpretation 12 lead EK Rhythm: Electronic pacemaker rhythm [employer] [place] [employer] [place]: normal QRS: normal ST segments:, Comparison to previous EKG dated 10/07/18, probably no significant change Imaging X-ray: Two-view chest x-ray was obtained. I viewed the images myself on the PACS system. My interpretation of the images is: Decreased inflation., Hiatal hernia with fluid level noted, no infiltrate or effusion Compared to previous chest x-ray 10/15/18. The radiologist interpretation had no clinically significant variation from this interpretation. Results: CT scan of the CTA pulmonary angiogram was obtained. The results of the study are CT angiogram chest with contrast Indication: Chest pain. Elevated d-dimer. Recent pacemaker. Comparison: 07/31/2014. Technique: Axial CT images are obtained through the chest after administration of 75 mL Isovue 370 IV contrast. Reformatted coronal and sagittal images were reviewed as well as coronal MIP images. One of the following dose optimization techniques was utilized in the performance of this exam: automated exposure control; adjustment of the mA and/or kV according to the patient's size; or use of an iterative reconstruction technique. Specific details can be referenced in the facility's radiology CT exam operational policy. FINDINGS: No evidence of filling defect within the pulmonary vasculature to suggest pulmonary embolus. The heart is normal size with no pericardial effusion. Mild coronary artery calcifications. The aorta shows mild atherosclerotic calcific changes without aneurysm or dissection. The ascending aorta is upper limits normal at 3.9 cm. Not significantly changed. The mediastinum and hilar regions show no enlarged lymph node or abnormal density. Lungs show no consolidation, pleural effusion or pneumothorax. No discrete nodule or focal interstitial opacities. Airways are clear. Bony structures show no acute fractures or aggressive bony lesions. Mild degenerative change seen spine. Chest wall shows no enlarged axillary lymph nodes or masses. The anterior chest wall subcutaneous skin does show a 1.1 cm sebaceous cyst along the midline. There is again a moderate to large hiatal hernia. The upper abdomen is otherwise unremarkable. IMPRESSION: 1. No evidence of pulmonary embolus. 2. No acute cardiothoracic abnormality 3. Moderate to large hiatal hernia is again present. 4. Other chronic stable findings as above. The study was read by the radiologist. I viewed the images myself on the PACS system. ED Course/Re-evaluation Clinical Indication for ER IV: IV Access ED Course Patient was admitted to an examination room. H&P was done. The differential diagnoses was considered. Patient with a known history of pacemaker, hypertension and GERD. Patient followed closely by Dr. Dahl. He is due to see him in. Routine follow-up in 2 days. Tonight after dinner. Patient noted sudden onset an hour prior to arrival of substernal chest pressure with tingling in her bilateral arms with shortness of breath no diaphoresis or nausea. Patient does have a history of a hiatal hernia and GERD takes pen proposal. Patient also has hypertension on lisinopril. She had amlodipine 10 mg added, but it was discontinued secondary to leg edema. Patient's initial EKG shows a pacemaker rhythm compared to her previous EKG 10/07/18 and no significant change. Patient's 1st troponin comes back elevated in the indeterminate zone at 0.091. She did receive aspirin on arrival. Fentanyl and Zofran. Nitropaste 1 inch was added because she is persistently hypertensive. Her d-dimer came back elevated at 1.72. A CTA pulmonary angiogram was added. Her chest x-ray returned with no infiltrate, no effusion, and was unchanged from her previous chest x-ray. 02/03/2019 10:36:[address] [place] cardi[place] [facility] [place] for transfer to his facility. He would like the patient admitted under the hospitalist. Nothing by mouth tonight with plans for catheterization in the morning. He requested heparin drip be initiated. 02/03/2019 10:45:39 pm case discussed with Dr. Friedman hospitalist at [facility] [place] who accepts patient for admission under the hospital service. Decision to Disposition Date: Feb 03, 2019 Decision to Disposition Time: 19:35 Critical Care Time I spent a total of 60 minutes of critical care time in obtaining history, performing a physical exam, bedside monitoring of interventions, collecting and interpreting tests and discussion with consultants but not including time spent performing procedures. Depart Departure Latest Vital Signs Vital Signs Date Time Temp Pulse Resp B/P (MAP) Pulse Ox O2 Delivery O2 Flow Rate FiO2 02/03/19 23:45 135/83 (100) 02/03/19 23:43 69 16 95 02/03/19 19:19 2.0 02/03/19 18:44 97.9 Room Air Impression: Primary Impression: Chest pain Additional Impressions: Elevated troponin Pacemaker GERD (gastroesophageal reflux disease) Hypertension Condition: Improved Disposition: XFER TO ACUTE CARE HOSPITAL Referrals: MARTIN KELLER MD (PCP) Problem Qualifiers Primary Impression: Chest pain Chest pain type: chest pain due to myocardial ischemia Ischemic chest pain type: unspecified angina pectoris type Qualified Codes: I25.9 - Chronic ischemic heart disease, unspecified Additional Impressions: GERD (gastroesophageal reflux disease) Esophagitis presence: esophagitis presence not specified Qualified Codes: K21.9 - Gastro-esophageal reflux disease without esophagitis Hypertension Hypertension type: essential hypertension Qualified Codes: I10 - Essential (primary) hypertension JESE RODRIGEZ DO Feb 03, 2019 18:51
[2019-02-03] MEDS ORDERED: ONDANSETRON 4 MG/2 ML VIAL IVP ONE (18:55)
[2019-02-03] MEDS ORDERED: ASPIRIN 81 MG CHEW PO ONE (18:55)
[2019-02-03] MEDS ORDERED: fentaNYL CITR 100 MCG/2 ML AMP IVP ONE (18:55)
--- NOTE | 2019-02-03 19:03 | EKG ---
[place] [facility] [place] NAME: FERN LAU : [id number] MR: [id number] V: [id number] EXAM DATE: ORDERING PHYSICIAN: JESE RODRIGEZ TECHNOLOGIST: JOSE Test Reason : CP Blood Pressure : / mmHG Vent. Rate : 086 BPM Atrial Rate : 086 BPM P-R Int : 194 ms QRS Dur : 168 ms QT Int : 444 ms P-R-T Axes : 000 108 127 degrees QTc Int : 531 ms Electronic ventricular pacemaker Confirmed by ELIA VENEGAS ([id number]) on 02/03/2019 7:45:16 PM Referred By: Confirmed By:ELIA VENEGAS
[2019-02-03 19:06] LABS: PLATELET COUNT, AUTOMATED 313 K/uL (150-450)
[2019-02-03] MEDS ORDERED: NITROGLYCERIN OINT 1 GM PKT TP ONE (19:30)
[2019-02-03] MEDS ORDERED: IOPAMIDOL 76% 100 ML INFUS BTL 100 ML ONE (19:49)
[2019-02-03] MEDS ORDERED: NS(*) 0.9% 50 ML BAG 50 ML ONE (19:50)
--- NOTE | 2019-02-03 20:35 | RADIOLOGY IMAGING REPORT ---
FACILITY: [facility] PATIENT NAME: Fe Lorenzana : 1940 MR: [id number] V: [id number] EXAM DATE: ORDERING PHYSICIAN: JESE RODRIGEZ TECHNOLOGIST: Location: [facility] [place] Patient: Fe Lorenzana : 1940 Visit/Account:[id number] Date of Sevice: 02/03/2019 CT angiogram chest with contrast Indication: Chest pain. Elevated d-dimer. Recent pacemaker. Comparison: 07/31/2014. Technique: Axial CT images are obtained through the chest after administration of 75 mL Isovue 370 IV contrast. Reformatted coronal and sagittal images were reviewed as well as coronal MIP images. One of the following dose optimization techniques was utilized in the performance of this exam: auto mated exposure control; adjustment of the mA and/or kV according to the patient's size; or use of an iterative reconstruction technique. Specific details can be referenced in the facility's radiology C T exam operational policy. FINDINGS: No evidence of filling defect within the pulmonary vasculature to suggest pulmonary embolus. The heart is normal size with no pericardial effusion. Mild coronary artery calcifications. The aorta shows mild atherosclerotic calcific changes without aneurysm or dissection. The ascending aorta is u pper limits normal at 3.9 cm. Not significantly changed. The mediastinum and hilar regions show no en larged lymph node or abnormal density. Lungs show no consolidation, pleural effusion or pneumothorax. No discrete nodule or focal interstiti al opacities. Airways are clear. Bony structures show no acute fractures or aggressive bony lesions. Mild degenerative change seen spi ne. Chest wall shows no enlarged axillary lymph nodes or masses. The anterior chest wall subcutaneous skin does show a 1.1 cm sebaceous cyst along the midline. There is again a moderate to large hiatal hernia. The upper abdomen is otherwise unremarkable. IMPRESSION: 1. No evidence of pulmonary embolus. 2. No acute cardiothoracic abnormality 3. Moderate to large hiatal hernia is again present. 4. Other chronic stable findings as above. Report Dictated By: Brandin Newberry at 02/03/2019 8:17 PM Report E-Signed By: Brandin Newberry at 02/03/2019 8:29 PM [id number]
--- NOTE | 2019-02-03 21:40 | RADIOLOGY IMAGING REPORT ---
FACILITY: [facility] [place] PATIENT NAME: Fe Lorenzana : 1940 MR: [id number] V: [id number] EXAM DATE: ORDERING PHYSICIAN: JESE RODRIGEZ TECHNOLOGIST: Location: [facility] Patient: Fe Lorenzana : 1940 Visit/Account:[id number] Date of Sevice: 02/03/2019 EXAMINATION: Chest radiographs 2 views HISTORY: Chest pain. COMPARISON: 10/07/2018. FINDINGS: PA and lateral views of the chest are submitted. Lines/tubes: Left subclavian approach pacer. Surgical clips in the right upper quadrant of the abdo men. Lungs/pleura: No focal consolidation or pleural effusion. No evidence of pneumothorax. Heart: Stable heart size. Mediastinum: Large hiatal hernia. Bony structures/body wall: Multilevel disc and facet degenerative changes in the spine. IMPRESSION: No radiographic evidence of acute cardiopulmonary disease. Large hiatal hernia. Report Dictated By: Ankur Castañeda MD at 02/03/2019 9:31 PM Report E-Signed By: Ankur Castañeda MD at 02/03/2019 9:34 PM WSN:[id number]
[2019-02-03] MEDS ORDERED: HEPARIN* SOD/D5W 25000 U/500ML 500 ML IV ONE (22:40)
[2019-02-03] MEDS ORDERED: HEPARIN (PORC) 5000 UN/ML VIAL IVP ONE (22:40)
[2019-02-03] MEDS ORDERED: HEPARIN SOD/D5W 25000/250 ML 250 ML IV ONE (22:40)
[2019-02-03 23:45] VITALS: BP 135/83
== END 2019-02-03 23:57 | disposition short-term general hospital (02) ==
LOC: ER 19:00
DX: R07.89 Other chest pain (principal); R79.89 Other specified abnormal findings of blood chemistry; Z95.0 Presence of cardiac pacemaker; K21.9 Gastro-esophageal reflux disease without esophagitis; I10 Essential (primary) hypertension; I25.9 Chronic ischemic heart disease, unspecified
CPT/HCPCS: 36415; 71046; 71275; 83880; 84484; 85025; 85379; 93005; 96365; 96375; 99291; A9270; J1644; J2405; J3010; J7050; Q9967; 82040; 82247; 82310; 82374; 82435; 82565; 82947; 84075; 84132; 84155; 84295; 84450; 84460; 84520